=== PATIENT | male | born 1975 | race Caucasian/White ===

== ENCOUNTER → 2020-10-28 | Outpatient (CLI) | payer BC ==
--- NOTE | 2020-10-28 13:14 | CONS ---
CONSULTATION DATE OF SERVICE: 10/28/2020 REASON FOR CONSULTATION: A 45-year-old gentleman who has been re-evaluated in the sleep Center for obstructive sleep apnea-hypopnea syndrome. HISTORY OF PRESENT ILLNESS/SLEEP WAKE EVALUATION: The patient has been diagnosed with obstructive sleep apnea in 2010 in our institution by me and at that time he was started on treatment with CPAP. The patient continues to use CPAP equipment for all these years and according to the patient when he is using CPAP, he sleeps well. Without CPAP he has snoring episodes of stopped breathing during sleep, multiple awakenings from sleep, tossing and turning during the night. No history of hypnagogic hallucinations, sleep paralysis or cataplexy. Without CPAP Effort Sleepiness Scale increased to 15. The patient may take one nap in the afternoon. PAST MEDICAL HISTORY: Positive for hypertension, acid reflux, allergy, hyperlipidemia. PAST SURGICAL HISTORY: Vasectomy. MEDICATIONS: Losartan 50 mg once a day, atorvastatin 10 mg once a day, metoprolol 25 mg once a day, amlodipine 10 mg once a day, omeprazole 20 mg once a day, Zyrtec 10 mg once a day. SOCIAL HISTORY: Negative for smoking. Alcohol consumption occasional. FAMILY HISTORY: Hypertension, heart problems, epilepsy. REVIEW OF SYSTEMS: Occasional snoring. No fevers. No double vision. No recent chest pain. No shortness of breath. No abdominal pain. No bleeding episodes. No blood in the urine. No seizure episodes. PHYSICAL EXAMINATION: GENERAL: gentleman without distress. VITAL SIGNS: BP 137/90, HR 69, RR 15, height 5' and 6", weight 182.2, body mass index 29.3, temperature 97.1, oxygen saturation at room air 98%. HEENT: PERRLA, EOMI, evaluation of oropharynx showed tongue protrudes midline. Moderately low position of soft palate. NECK: Supple, no JVD. Thyroid is not palpable. LUNGS: Clear to percussion and to auscultation. Good air exchange. No wheezing or rhonchi. HEART: S1, S2 regular. No murmurs, gallops, or rubs. ABDOMEN: Soft and nontender. Bowel sounds are present. No organomegaly appreciated. EXTREMITIES: No clubbing or cyanosis. DENTAL PRACTICE MANAGER: Awake, alert, and oriented X3. Cranial nerves 2 to 7 intact. There is no fasciculation or atrophy. noted. No focal deficits observed. I checked the patient's CPAP unit. CPAP pressure is 10 cm of water. Usage is 30/30 nights for more than 4 hours. Leak is 0%. Apnea-hypopnea index is only 0.8, which is perfect. IMPRESSION: 1. Obstructive sleep apnea-hypopnea syndrome. Patient demonstrated 100% compliance with treatment. Normal aspiration on CPAP and by reading information from CPAP unit. 2. Hypertension. 3. Acid reflux. 4. Allergies. 5. Hyperlipidemia. 6. Status post vasectomy. PLAN: 1. Prescription for all necessary CPAP supplies, including Carrera FX, nasal pillow mask, tube, filters, chamber for humidifier. 2. Patient should continue to use his CPAP equipment every night for the whole night. 3. The patient should remove all water which is left in the humidifier in the morning and let humidifier dry and put new portion of water in the evening. 4. Sleep hygiene with regular time in bed for 7-1/2 to 8 hours. 5. No driving if feeling sleepiness. 6. Follow-up visit in 6 months or earlier if patient has any problems. Thank you very much for allowing me to participate in the management of your patient. Sincerely, Sascha Beebe MD, PhD, FAASM Diplomat of [employer] [facility] [facility] [place] [facility] / DOCN: [id number] /
== END ==
LOC: SLEEP 10:43
PROVIDERS: ATTEND Internal Medicine
DX: Z53.9 Procedure and treatment not carried out, unspecified reason (principal)

== ENCOUNTER 2023-09-21 11:32 | Day surgery (SDC) | payer BC ==
[2023-09-21] MEDS: LACTATED RINGERS 1,000 ML IV ONE ×2 (12:28→13:02)
[2023-09-21] MEDS ORDERED: LACTATED RINGERS 1,000 ML IV SCH (12:40)
[2023-09-21 12:54] VITALS: RESP 16; TEMP 97.8
[2023-09-21] MEDS ORDERED: PROPOFOL 10 MG/ML 20 ML VIAL IV ONE (13:08)
--- NOTE | 2023-09-21 13:26 | P.PCN ---
Date of Procedure: 09/21/23 Procedure(s) Performed: BRIEF HISTORY: Patient is a 48-year-old pleasant White male scheduled for an elective colonoscopy as a part of Screening for colon cancer. PROCEDURE PERFORMED: Colonoscopy. PREOPERATIVE DIAGNOSIS: Screening for colon cancer IV sedation per Anesthesia. PROCEDURE: After informed consent was obtained, the patient, was brought into the endoscopy unit. IV sedation was administered by Anesthesia under continuous monitoring. Digital rectal examination was normal. Initially the Olympus CF-160 flexible video colonoscope was then inserted in the rectum, gradually advanced into the cecum without any difficulty. Careful examination was performed as the scope was gradually being withdrawn. Ileocecal valve and the appendiceal orifice were visualized and appeared normal. Prep was excellent. Mucosa of the cecum, ascending colon, transverse colon, descending colon, sigmoid colon, and rectum appeared normal. Retroflexion was performed in the rectum and no lesions were seen. The patient tolerated the procedure well. IMPRESSION: Normal-appearing colon from rectum to cecum with no evidence of colorectal neoplasia. RECOMMENDATIONS: Findings of this examination were discussed with the patient As well as his family..He was advised to have a repeat screening colonoscopy in 10 years
[2023-09-21 14:13] VITALS: BP 124/78; PULSE 67
== END 2023-09-21 14:14 | disposition home or self-care (01) ==
LOC: ORWHC2ENDO 11:32
PROVIDERS: ATTEND Internal Medicine Gastroenterology
DX: Z12.11 Encounter for screening for malignant neoplasm of colon (principal); I10 Essential (primary) hypertension; E78.5 Hyperlipidemia, unspecified; G47.33 Obstructive sleep apnea (adult) (pediatric); N28.9 Disorder of kidney and ureter, unspecified; E27.9 Disorder of adrenal gland, unspecified; K21.9 Gastro-esophageal reflux disease without esophagitis; Z79.899 Other long term (current) drug therapy
CPT/HCPCS: 45378; J2704

== ENCOUNTER → 2024-10-01 | Outpatient (CLI) | payer BC ==
--- NOTE | 2024-10-01 13:20 | US ---
EXAMINATION TYPE: US extremity nonvasc mass RT DATE OF EXAM: 10/01/2024 COMPARISON: NONE CLINICAL INDICATION: Male, 49 years old with history of R22.31 SWELL MASS LUMP RUE; pt has lump on rt tricep x 2 years, lump got bigger and bigger & dr wanted it checked, no pain, tenderness or redness, swollen TECHNIQUE: Right Tricep scanned FINDINGS: Hyperechoic area seen rt tricep: 6.1x3.1x4.8cm Provided images show an oval, circumscribed isoechoic mass measuring 6.1 x 4.8 x 3.1 cm. Possibly int ramuscular but difficult to accurately determine on the provided images. 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 However, given the progressive enlargement, aty pical lipomatous tumor or other neoplasm/sarcoma should be excluded. Consider further assessment with both CT and MRI. [facility], Workstation: [email or web address], 10/01/2024 1:17 PM
== END | disposition home or self-care (01) ==
LOC: RADUSWWP 12:23
PROVIDERS: ATTEND Family Medicine
DX: R22.31 Localized swelling, mass and lump, right upper limb (principal)